=== PATIENT | male | born 1955 | race American Indian/Alaskan Native ===

== ENCOUNTER → 2019-05-13 11:32 | Outpatient (CLI) | payer MEDICAID, SELFPAY ==
--- NOTE | 2019-05-13 | DI.MRI.S_ITS ---
PROCEDURE: MR HEAD/BRAIN WO/W CON INDICATIONS: Headache TECHNIQUE: Noncontrast axial T1 spin echo, axial T2 fast spin echo, sagittal and axial FLAIR, coronal T2 fast spin echo, axial gradient echo, axial diffusion and ADC through the brain. After the administration of contrast, axial and coronal 3D VIBE or T1 spin echo with fat saturation through the brain. COMPARISON: None. FINDINGS: Image quality: Excellent. CSF Spaces: Basal cisterns are patent. No extra-axial fluid collections. Ventricles are normal in size and shape. Brain: No midline shift. No intracranial bleeds or masses. No abnormal intracranial enhancement. The brainstem appears normal. Diffusion-weighted images demonstrate no acute ischemic insults. No areas of encephalomalacia. No GRE weighted abnormalities are identified in the brain parenchyma. Confluent foci of increased T2 signal noted in the left frontal subcortical white matter which may represent chronic microvascular ischemic change, however other etiologies including demyelinating process cannot be excluded by imaging alone. There is mild diffuse cerebral volume loss. Normal intravascular flow voids are present. Skull and face: Calvarial marrow is normal in signal. Orbits appear normal. Sinuses: Sinuses and mastoids appear clear. IMPRESSION: 1. No acute intracranial disease process. 2. No areas of acute or chronic infarction. 3. No abnormal intracranial mass or suspicious postcontrast enhancement. 5. No intracranial hemorrhage. 6. Confluent foci of increased T2 signal in the left frontal subcortical white matter. Finding may represent chronic microvascular ischemic change of aging, however other etiologies including demyelinating process cannot be excluded by imaging alone. Recommend correlation with clinical data. Dictated by: Florida Graf MD, PhD on 05/13/2019 at 15:59 Approved by: Florida Graf MD, PhD on 05/13/2019 at 16:09
== END ==
PROVIDERS: PCP Family Medicine; Visit Provider Family Medicine
DX: R51 Headache (principal); R41.3 Other amnesia; H53.9 Unspecified visual disturbance; M89.9 Disorder of bone, unspecified
CPT/HCPCS: 70553; A9579